=== PATIENT | male | born 1940 | race Two or more races ===

== ENCOUNTER 2016-04-16 13:23 | Emergency (ER) | payer MEDICARE, MEDICAID ==
--- NOTE | 2016-04-16 13:25 | ED Physician Chart ---
Chief Complaint/HPI - Patient Information Date Seen:: 04/16/16 Time Seen:: 13:25 Chief Complaint:: alcohol intoxication History of Present Illness:: 75-year-old male known alcoholic, brought in by ambulance with acute, moderate, constant, alcohol intoxication that started sometime this morning. Was picked up inside the building after the building on her called police who then called paramedics. Has associated abdominal discomfort. Allergies:: Allergies Allergy/AdvReac Type Severity Reaction Status Date / Time No Known Allergies Allergy Verified 02/01/16 10:57 Historian:: Patient, EMS Review:: Nurse's Note Reviewed Review of Systems - Review of Systems Other: Complete system review otherwise unremarkable except as noted in HPI. Past Medical History - Past Medical History Past Medical History: Other (alcohol abuse) Family History: None Social History: Non Smoker, No Alcohol, No Drug Use, Homeless Surgical History: None Psychiatricy History: None Medication: None Family Medical History - Family Member Mother History Unknown: Yes Ethnicity: Physical Exam - Physical Examination Other:: INITIAL VITAL SIGNS: Reviewed by me GENERAL: Alert and interactive. No acute distress HEAD: Head is normocephalic and atraumatic EYES: EOMI. . No scleral icterus. No conjunctival injection ENT: Moist mucous membranes. NECK: Supple. No masses. Full range of motion RESPIRATORY: No tachypnea. Clear breath sounds bilaterally. No wheezing, rales, or rhonchi CV: Regular rate and rhythm. No murmurs, rubs, or gallops ABDOMEN: Soft, non-distended, non-tender. No guarding. No rebound. No masses. EXTREMITIES: No deformity. No cyanosis. No edema. SKIN: Warm and dry. No obvious rashes. NEUROLOGIC: Alert and oriented. Face is symmetric. Speech is normal. Moves all extremities equally. Motor and sensory distally intact. Labs/Radiology/EKG Results - Lab Results Results: Lab Results 04/16/16 04/16/16 Range/Units 13:45 13:45 WBC 6.3 D (4.8-10.8) Th/cmm RBC 4.05 (3.80-5.80) Mil/cmm Hgb 12.1 L (12.6-17.4) gm/dL Hct 34.4 L (39.0-49.0) % MCV 85.0 (80-99) fl MCH 29.8 (27.0-31.0) pg MCHC Differential 35.1 (28.0-36.0) pg RDW 13.3 (11.5-20.0) % Plt Count 119 L D (150-400) Th/cmm MPV 8.9 fl Neutrophils % 66.7 (40.0-80.0) % Lymphocytes % 26.4 (20.0-50.0) % Monocytes % 6.0 (2.0-10.0) % Eosinophils % 0.4 (0.0-5.0) % Basophils % 0.5 (0.0-2.0) % Sodium 141 (136-145) mEq/L Potassium 2.9 L* (3.5-5.1) mEq/L Chloride 105 (98-107) mEq/L Carbon Dioxide 22.1 (21.0-31.0) mEq/L Anion Gap 16.8 H (7.0-16.0) BUN 12 (7-25) mg/dL Creatinine 0.7 (0.7-1.3) mg/dL Est GFR ( Amer) TNP Est GFR (Non-Af Amer) TNP BUN/Creatinine Ratio 17.1 Glucose 134 H (70-105) mg/dL Calcium 9.0 (8.6-10.3) mg/dL Total Bilirubin 0.6 (0.3-1.0) mg/dL AST 32 (13-39) U/L ALT 17 (7-52) U/L Alkaline Phosphatase 88 (34-104) U/L Total Protein 6.7 (6.0-8.3) gm/dL Albumin 3.9 L (4.2-5.5) gm/dL Globulin 2.8 gm/dL Albumin/Globulin Ratio 1.4 (1.0-1.8) Amylase 28 L (29-103) U/L Lipase 37 (11-82) U/L ED Septic Shock - . Is Septic Shock (SBP<90, OR Lactate>4 mmol\L) present?: No Reassessment (Disposition) - Reassessment Reassessment:: Patient had hypokalemia. Potassium was replaced with oral potassium. He also received antiemetic. Patient appears to have some alcoholic gastritis. Symptoms improved after receiving acetaminophen. Patient was noted to eat a meal. He was ambulatory to and from restroom and throughout the emergency department. Signs of any acute abnormality. Ultimately the patient was discharged from the ER. Recommended follow-up with PCP or free clinic within one to 2 days. Gave return to ER precautions. Patient understands and agrees the plan. Reassessment Condition:: Improved - Diagnosis Diagnosis:: Hypokalemia Alcohol intoxication Alcoholic gastritis - Aftercare/Follow up Instructions Aftercare/Follow-Up Instructions:: Counseled pt regarding lab results/diagnosis & need follow up, Refer to Discharge Instructions - Patient Disposition Discharge/Transfer:: Home Time:: 15:03 Condition at Disposition:: Improved ED Discharge Plan - Patient Disposition Admit/Discharge/Transfer: PT DISCHARGED HOME Condition at Disposition: Improved Instructions: Hypokalemia
[2016-04-16] MEDS ORDERED: Sodium Chloride 0.9% 500 ML IV ONE (13:36)
[2016-04-16 13:51] LABS: % BASOPHILS 0.5 % (0.0-2.0); % EOSINOPHILS 0.4 % (0.0-5.0); % LYMPHOCYTES 26.4 % (20.0-50.0); % NEUTROPHILS 66.7 % (40.0-80.0); HEMATOCRIT 34.4 % (39.0-49.0); HEMOGLOBIN 12.1 gm/dL (12.6-17.4); MEAN CORPUSCULAR HEMOGLOBIN 29.8 pg (27.0-31.0); MEAN CORPUSCULAR HGB CONC 35.1 pg (28.0-36.0); MEAN PLATELET VOLUME 8.9 fl; NEUTROPHILE ABSOLUTE 4.2 Th/cmm (1.8-8.0); RED BLOOD COUNT 4.05 Mil/cmm (3.80-5.80); RED CELL DISTRIBUTION WIDTH 13.3 % (11.5-20.0)
[2016-04-16 13:52] LABS: PLATELET COUNT 119 Th/cmm (150-400); WHITE BLOOD COUNT 6.3 Th/cmm (4.8-10.8)
[2016-04-16 14:13] LABS: ALB/GLOB RATIO 1.4 (1.0-1.8); ALKALINE PHOSPHATASE 88 U/L (34-104); AMYLASE SERUM 28 U/L (29-103); ANION GAP 16.8 (7.0-16.0); BILIRUBIN,TOTAL 0.6 mg/dL (0.3-1.0); BUN - UREA NITROGEN 12 mg/dL (7-25); BUN/CREATININE RATIO 17.1; CARBON DIOXIDE 22.1 mEq/L (21.0-31.0); CHLORIDE 105 mEq/L (98-107); CREATININE - SERUM 0.7 mg/dL (0.7-1.3); GLUCOSE 134 mg/dL (70-105); LIPASE 37 U/L (11-82); SGOT 32 U/L (13-39); SGPT/ALT 17 U/L (7-52); SODIUM SERUM 141 mEq/L (136-145)
[2016-04-16 14:20] LABS: POTASSIUM SERUM 2.9 mEq/L (3.5-5.1)
[2016-04-16] MEDS ORDERED: Potassium Chloride 20 mEq ER Tab PO ONE ×2 (14:22→14:37)
[2016-04-16 14:44] VITALS: BP 109/52
== END 2016-04-16 16:15 | disposition home or self-care (01) ==
LOC: EDBD → ER 13:23
DX: F10.129 Alcohol abuse with intoxication, unspecified (principal); E87.6 Hypokalemia; K29.20 Alcoholic gastritis without bleeding; Z59.0 Homelessness
CPT/HCPCS: 99284; 96372; 36415; 85025; 82150; 83690; 80053; Q0162; J1885; Z7502; Z7610

== ENCOUNTER 2016-05-10 15:29 | Emergency (ER) | payer MEDICARE, MEDICAID | END 2016-05-10 16:05 | disposition left against medical advice (07) | LOC: EDBD 15:29 → ER 15:29 | DX: F10.129 Alcohol abuse with intoxication, unspecified (principal) ==

== ENCOUNTER 2016-05-11 06:13 | Emergency (ER) | payer MEDICARE, MEDICAID ==
--- NOTE | 2016-05-11 06:33 | ED Physician Chart ---
Chief Complaint/HPI - Patient Information Date Seen:: 05/11/16 Time Seen:: 06:18 Chief Complaint:: EtOH intoxication History of Present Illness:: 75-year-old male, history of alcohol abuse, seen many times here in this emergency room and other local ERs, brought in with acute, constant, mild, generalized, nonradiating, headache started this morning. Was loitering in front of a local gas station and the gas pumper called the police to have him removed. Allergies:: Allergies Allergy/AdvReac Type Severity Reaction Status Date / Time No Known Allergies Allergy Verified 04/16/16 13:34 Historian:: Patient, EMS Review:: Nurse's Note Reviewed, EMS run form Reviewed Review of Systems - Review of Systems Other: Complete system review otherwise unremarkable except as noted in HPI. Past Medical History - Past Medical History Past Medical History: HTN, Other (alcohol abuse) Family History: None Social History: Non Smoker, Alcohol, No Drug Use, Homeless Surgical History: None Psychiatricy History: None Medication: None Family Medical History - Family Member Mother History Unknown: Yes Ethnicity: Physical Exam - Physical Examination Other:: INITIAL VITAL SIGNS: Reviewed by me GENERAL: Alert and interactive. No acute distress HEAD: Head is normocephalic and atraumatic EYES: EOMI. . No scleral icterus. No conjunctival injection ENT: Moist mucous membranes. NECK: Supple. No masses. Full range of motion RESPIRATORY: No tachypnea. Clear breath sounds bilaterally. No wheezing, rales, or rhonchi CV: Regular rate and rhythm. No murmurs, rubs, or gallops ABDOMEN: Soft, non-distended, non-tender. No guarding. No rebound. No masses. EXTREMITIES: No deformity. No cyanosis. No edema. SKIN: Warm and dry. No obvious rashes. NEUROLOGIC: Alert and oriented. Face is symmetric. Speech is normal. Moves all extremities equally. Motor and sensory distally intact. ED Septic Shock - . Is Septic Shock (SBP<90, OR Lactate>4 mmol\L) present?: No Reassessment (Disposition) - Reassessment Reassessment:: This patient was seen here multiple times for alcohol intoxication and today he received ibuprofen and Zofran. He did have a slight headache and the headache has improved. He is ambulating to and from the restroom and throughout the ER without any assistance. There is no signs of any unsteady gait. Patient wished to be discharged and he was discharged. Recommended follow-up in 1-2 days with outpatient clinic. Gave return to ER precautions. Patient understands and agrees with the plan. Reassessment Condition:: Improved - Diagnosis Diagnosis:: EtOH intoxication Cephalalgia - Aftercare/Follow up Instructions Aftercare/Follow-Up Instructions:: Counseled pt regarding lab results/diagnosis & need follow up, Refer to Discharge Instructions - Patient Disposition Discharge/Transfer:: Home Time:: 06:38 Condition at Disposition:: Improved ED Discharge Plan - Patient Disposition Admit/Discharge/Transfer: PT DISCHARGED HOME Condition at Disposition: Improved Instructions: Alcohol Intoxication
== END 2016-05-11 07:45 | disposition home or self-care (01) ==
LOC: EDBD → ER 06:13
DX: F10.129 Alcohol abuse with intoxication, unspecified (principal); R51 Headache; I10 Essential (primary) hypertension; Z59.0 Homelessness
CPT/HCPCS: 99283; Q0162; Z7502; Z7610

== ENCOUNTER 2016-08-26 16:58 | Emergency (ER) | payer MEDICARE, MEDICAID ==
--- NOTE | 2016-08-26 17:23 | ED Physician Chart ---
Chief Complaint/HPI - Patient Information Date Seen:: 08/26/16 Time Seen:: 17:10 Chief Complaint:: ALOC History of Present Illness:: THIS IS A CHRONIC ALCOHOLIC FOUND DOWN IN THE STREET WITH C/O CHEST PAIN AND A COUGH TODAY. THE EMS GAVE HIM ASA AND NITROGLYCERIN FOR HIS PAIN. HE ALSO C/O OF RIGHT SHOULDER PAIN. HE DRINKS LOTS OF ALCOHOL. Allergies:: Allergies Allergy/AdvReac Type Severity Reaction Status Date / Time No Known Allergies Allergy Verified 08/26/16 17:07 Vitals:: Vital Signs - 8 hr 08/26/16 16:58 Temp 98.3 F HR 120 RR 16 BP 130/69 O2 Sat % 97 Historian:: Patient, EMS Review:: Nurse's Note Reviewed Review of Systems - Review of Systems General/Constitutional: No fever, No chills, No weight loss, Weakness, No diaphoresis, No edema, No loss of appetite Skin: No skin lesions, No rash, No bruising Head: No headache, No light-headedness Eyes: No loss of vision, No pain, No diplopia ENT: No earache, No nasal drainage, No sore throat, No tinnitus Neck: No neck pain, No swelling, No thyromegaly, No stiffness, No mass noted Cardio Vascular: Chest pain, No palpitations, No PND, No orthopnea, No edema Pulmonary: No SOB, No cough, No sputum, No wheezing GI: No nausea, No vomiting, No diarrhea, No pain, No melena, No hematochezia, No constipation, No hematemesis G/U: No dysuria, No frequency, No hematuria Musculoskeletal: No bone or joint pain, No back pain, No muscle pain Endocrine: No polyuria, No polydipsia Psychiatric: No prior psych history, No depression, No anxiety, No suicidal ideation Hematopoietic: No bruising, No lymphadenopathy Allergic/Immuno: No urticaria, No angioedema Neurological: Syncope, No focal symptoms, No weakness, No paresthesia, No headache, No seizure, No dizziness, Confusion, No vertigo Past Medical History - Past Medical History Obtainable: Yes Past Medical History: HTN, CAD, Other (ALCOHOLISM) Family History: None Social History: Non Smoker, Alcohol, No Drug Use Surgical History: None Psychiatricy History: None Medication: Reviewed Family Medical History - Family Member Mother History Unknown: Yes Ethnicity: Physical Exam - Physical Examination General/Constitutional: Well-developed, well-nourished, Alert, No distress, GCS 15, Ambulatory Other Gen/Cons comments:: LOOK DRUNK FROM THE ETOH INTAKE Head: Atraumatic Eyes: Lids, conjuctiva normal, PERRL, EOMI Skin: Nl inspection, No rash, No skin lesions, No ecchymosis, Well hydrated, No lymphadenopathy ENMT: External ears, nose nl, Nasal exam nl, Lips, teeth, gums nl Neck: Nontender, Full ROM w/o pain, No JVD, No nuchal rigidity, No bruit, No mass, No stridor Respiratory: Nl effort/Exclusion, Clear to Auscultation, No Wheeze/Rhonchi/Rales Cardio Vascular: RRR, No murmur, gallop, rubs, NL S1 S2 GI: No tenderness/rebounding/guarding, No organomegaly, No hernia, Normal BS's, Nondistended, No mass/bruits, No McBurney tenderness : No CVA tenderness Extremities: No tenderness or effusion, Full ROM, normal strength in all extremities, No edema, Normal digits & nails Neuro/Psych: Alert/oriented, DTR's symmetric, Normal sensory exam, Normal motor strength, Judgement/insight normal, Mood normal, Normal gait, No focal deficits Misc: normal gait, Normal back, No paraspinal tenderness Labs/Radiology/EKG Results - Lab Results Results: Abnormal Lab Results 08/26/16 08/26/16 08/26/16 17:56 17:56 17:56 WBC 8.3 D RBC 4.95 Hgb 14.0 Hct 41.6 D MCV 83.9 MCH 28.2 MCHC Differential 33.6 RDW 14.5 Plt Count 128 L MPV 9.8 Neutrophils % 85.4 H Lymphocytes % 11.3 L Monocytes % 2.1 Eosinophils % 0.4 Basophils % 0.8 PT 9.9 INR 0.95 Sodium 140 Potassium 3.8 Chloride 106 Carbon Dioxide 18.4 L Anion Gap 19.4 H BUN 18 Creatinine 0.7 Est GFR ( Amer) TNP Est GFR (Non-Af Amer) TNP BUN/Creatinine Ratio 25.7 Glucose 92 Calcium 9.5 Total Bilirubin 0.8 AST 26 ALT 16 Alkaline Phosphatase 94 Troponin I Total Protein 7.6 Albumin 4.6 Globulin 3.0 Albumin/Globulin Ratio 1.5 TSH Ethyl Alcohol 08/26/16 08/26/16 08/26/16 17:56 17:56 17:56 WBC RBC Hgb Hct MCV MCH MCHC Differential RDW Plt Count MPV Neutrophils % Lymphocytes % Monocytes % Eosinophils % Basophils % PT INR Sodium Potassium Chloride Carbon Dioxide Anion Gap BUN Creatinine Est GFR ( Amer) Est GFR (Non-Af Amer) BUN/Creatinine Ratio Glucose Calcium Total Bilirubin AST ALT Alkaline Phosphatase Troponin I 0.03 Total Protein Albumin Globulin Albumin/Globulin Ratio TSH 0.23 L Ethyl Alcohol 230 H - Radiology Results Results: CHEST -XRAY = NAD - EKG Interpretations EKG Time:: 17:04 Rate & Rhythm: RATE 116, SINUS TACH [place]: RIGHT Intervals: NO PVC OR PAC Assessment - Assessment General Assessment: HOMELESS ALCOHOLIC THIS PATIENT 'S ALCOHOL LEVEL WAS NOT HIGH IT USUALLY IS, HOWEVER THE PATIENT HAD A PROBLEM WITH NAUSEA AND LATER VOMITING. SO THE PATIENT WAS NOT ABLE TO LEAVE PLANNED. THE PATIENT WAS THEN GIVEN ZOFRAN AND ATIVAN FOR HIS NAUSEA. BECAUSE HE COMPLAINED ABOUT A HEADACHE WITH VOMITING A CT SCAN WAS ORDERED. THE PATIENT WAS MONITORED AND THE LABS WERE REPEATED. A CT SCAN OF THE ABDOMEN WILL BE DONE IF HIS VOMITING PERSIST. ED Septic Shock - . Is Septic Shock (SBP<90, OR Lactate>4 mmol\L) present?: No - <6hrs of presentation: Vital Signs: Vital Signs - 8 hr 08/26/16 16:58 Temp 98.3 F HR 120 RR 16 BP 130/69 O2 Sat % 97 Reassessment (Disposition) - Reassessment Reassessment Condition:: Improved - Diagnosis Diagnosis:: ALCOHOL ABUSE - Aftercare/Follow up Instructions Aftercare/Follow-Up Instructions:: Counseled pt regarding lab results/diagnosis & need follow up, Refer to Discharge Instructions, Counseled pt & family regarding lab results/diagnosis & need follow up - Patient Disposition Discharge/Transfer:: Home Condition at Disposition:: Improved ED Discharge Plan - Patient Disposition Admit/Discharge/Transfer: PT DISCHARGED HOME Condition at Disposition: Improved Instructions: Alcohol Intoxication, [id number] Additional Instructions: STOP DRINKING ALCOHOL! FOLLOW UP WITH YOUR REGULAR DOCTOR.
[2016-08-26 18:06] LABS: % BASOPHILS 0.8 % (0.0-2.0); % EOSINOPHILS 0.4 % (0.0-5.0); % LYMPHOCYTES 11.3 % (20.0-50.0); % MONOCYTES 2.1 % (2.0-10.0); % NEUTROPHILS 85.4 % (40.0-80.0); MEAN CELL VOLUME 83.9 fl (80-99); MEAN CORPUSCULAR HEMOGLOBIN 28.2 pg (27.0-31.0); MEAN CORPUSCULAR HGB CONC 33.6 pg (28.0-36.0); MEAN PLATELET VOLUME 9.8 fl; NEUTROPHILE ABSOLUTE 7.1 Th/cmm (1.8-8.0); PLATELET COUNT 128 Th/cmm (150-400); RED BLOOD COUNT 4.95 Mil/cmm (3.80-5.80); RED CELL DISTRIBUTION WIDTH 14.5 % (11.5-20.0)
[2016-08-26 18:07] LABS: HEMATOCRIT 41.6 % (39.0-49.0); WHITE BLOOD COUNT 8.3 Th/cmm (4.8-10.8)
[2016-08-26 18:19] LABS: INR 0.95 (0.5-1.4); PROTHROMBIN TIME (TEST) 9.9 SECONDS (9.5-11.5)
[2016-08-26 18:24] LABS: ALB/GLOB RATIO 1.5 (1.0-1.8); ALKALINE PHOSPHATASE 94 U/L (34-104); ANION GAP 19.4 (7.0-16.0); BILIRUBIN,TOTAL 0.8 mg/dL (0.3-1.0); BUN - UREA NITROGEN 18 mg/dL (7-25); BUN/CREATININE RATIO 25.7; CALCIUM SERUM 9.5 mg/dL (8.6-10.3); CARBON DIOXIDE 18.4 mEq/L (21.0-31.0); CHLORIDE 106 mEq/L (98-107); CREATININE - SERUM 0.7 mg/dL (0.7-1.3); GLUCOSE 92 mg/dL (70-105); POTASSIUM SERUM 3.8 mEq/L (3.5-5.1); SGOT 26 U/L (13-39); SGPT/ALT 16 U/L (7-52); SODIUM SERUM 140 mEq/L (136-145)
[2016-08-26] MEDS ORDERED: Acetaminophen 500 MG TAB ONE (19:47)
[2016-08-26 23:36] LABS: POTASSIUM SERUM 4.1 mEq/L (3.5-5.1)
--- NOTE | 2016-08-27 10:05 | Diagnostic Imaging Report ---
CT scan of the brain without intravenous contrast HISTORY: Vomiting, headache Total DLP equals 548 CTDI equals 30.1 Axial sections were obtained from the base of the skull to the vertex. There is prominence/enlargement of the ventricular system size. Associated enlargement of cerebral sulci and subarachnoid cisterns. Findings are consistent with changes of generalized cerebral atrophy. No acute parenchymal abnormalities. No acute cerebral hemorrhage. Hypodensity is seen within the supratentorial white matter regions without mass effect. The findings may be associated with chronic small vessel ischemic disease. No extra-axial masses or abnormal fluid collections. IMPRESSION: 1. No acute abnormalities. No change from a prior study of February 17, 2016. 2. Cerebral atrophy 3. Supratentorial white matter changes that may reflect chronic small vessel ischemic disease 4. Mild mucosal thickening within the ethmoid and right frontal sinuses.
--- NOTE | 2016-08-27 10:15 | Diagnostic Imaging Report ---
Portable chest x-ray HISTORY: Cough The heart is enlarged. No focal pulmonary processes. No hilar or mediastinal abnormalities. Generative changes seen to the spine. IMPRESSION: 1. Cardiomegaly 2. No definite focal pulmonary processes
== END 2016-08-27 06:30 | disposition home or self-care (01) ==
LOC: ER 16:58
DX: F10.129 Alcohol abuse with intoxication, unspecified (principal); Y90.7 Blood alcohol level of 200-239 mg/100 ml; R07.9 Chest pain, unspecified; R40.4 Transient alteration of awareness; M25.511 Pain in right shoulder; I25.10 Atherosclerotic heart disease of native coronary artery without angina pectoris; I10 Essential (primary) hypertension; R11.2 Nausea with vomiting, unspecified; Z59.0 Homelessness
CPT/HCPCS: 36415-UA; 70450-TC; 71010-TC; 80053-TC; 80320-TC; 82150-TC; 83690-TC; 84132-TC; 84443-TC; 84484-TC; 85025-TC; 85610-TC; 86592-TC; 93005; J2060; Q0162; Z7610

== ENCOUNTER 2016-11-10 14:22 | Emergency (ER) | payer MEDICARE, MEDICAID ==
[2016-11-10] MEDS ORDERED: Multivitamin Inj 10 ML, Thiamine HCL 100 MG, Magnesium Sulfate 2 GM, Folic Acid 1 MG in... IV ONE (14:36)
[2016-11-10] MEDS ORDERED: Magnesium Sulfate 1 gm/2 mL 2mL Vial IV ONE (14:41)
--- NOTE | 2016-11-10 14:42 | ED Physician Chart ---
Chief Complaint/HPI - Patient Information Date Seen:: 11/10/16 Time Seen:: 14:25 Chief Complaint:: alcohol consumption History of Present Illness:: [place] [address] A bystander apparently called 911. Patient denies any particular problem at present. He states he been drinking alcohol today. When asked what kind of alcohol he drinks he states he drinks all kinds. Allergies:: Allergies Allergy/AdvReac Type Severity Reaction Status Date / Time No Known Allergies Allergy Verified 08/26/16 17:07 Historian:: Patient, EMS Review:: Nurse's Note Reviewed Review of Systems - Review of Systems General/Constitutional: No fever, No chills Skin: No skin lesions Head: No headache Eyes: No loss of vision ENT: No earache Neck: No neck pain Cardio Vascular: No chest pain Pulmonary: No SOB GI: No nausea, No vomiting G/U: No dysuria Musculoskeletal: No bone or joint pain, No back pain Endocrine: No polyuria, No polydipsia Psychiatric: No prior psych history, No depression Hematopoietic: No bruising Allergic/Immuno: No urticaria Neurological: No syncope Past Medical History - Past Medical History Past Medical History: No significant medical hx Family History: None Social History: Non Smoker, Alcohol, Homeless Surgical History: Cholecystectomy Psychiatricy History: None Medication: None Family Medical History - Family Member Mother History Unknown: Yes Ethnicity: Hx Family HIV: No Physical Exam - Physical Examination General/Constitutional: Well-developed, well-nourished, Alert, No distress Head: Atraumatic Eyes: Lids, conjuctiva normal, PERRL Skin: Nl inspection, No rash, No skin lesions, No ecchymosis Other ENMT comments:: Crust around entrance to left external auditory canal; 4 out of 4 poor dental hygiene Neck: No nuchal rigidity Respiratory: Nl effort/Exclusion, Clear to Auscultation Cardio Vascular: RRR GI: No tenderness/rebounding/guarding, No organomegaly, No hernia, Normal BS's, Nondistended : No CVA tenderness Extremities: Normal digits & nails Neuro/Psych: No focal deficits Labs/Radiology/EKG Results - Lab Results Results: Laboratory Results - last 24 hr 11/10/16 11/10/16 11/10/16 14:42 14:42 14:42 WBC 8.0 D RBC 3.59 L Hgb 10.4 L Hct 30.4 L MCV 84.6 MCH 29.1 MCHC Differential 34.3 RDW 18.7 Plt Count 99 L D MPV 9.2 Neutrophils % 74.2 Lymphocytes % 19.3 L Monocytes % 5.4 Eosinophils % 0.6 Basophils % 0.5 Sodium 136 Potassium 3.0 L Chloride 102 Carbon Dioxide 22.2 Anion Gap 14.8 BUN 11 Creatinine 0.7 Est GFR ( Amer) TNP Est GFR (Non-Af Amer) TNP BUN/Creatinine Ratio 15.7 Glucose 122 H Calcium 9.1 Magnesium 1.5 L Ethyl Alcohol 398 H - Radiology Results Results: CT head showed atrophy; no bleed Assessment - Assessment General Assessment: At 1715 patient stated he wanted to leave. He ambulated with a steady gait. ED Septic Shock - . Is Septic Shock (SBP<90, OR Lactate>4 mmol\L) present?: No Reassessment (Disposition) - Reassessment Reassessment Condition:: Improved - Diagnosis Diagnosis:: Acute alcohol intoxication; hypokalemia; hypomagnesemia; chronic alcohol abuse - Patient Disposition Discharge/Transfer:: Against Medical Advice Condition at Disposition:: Stable, Improved ED Discharge Plan - Patient Disposition Instructions: Alcohol Intoxication, [id number] Additional Instructions: TOLERATED.
[2016-11-10] MEDS ORDERED: Multivitamin Inj 10 mL Vial IV ONE (14:43)
[2016-11-10] MEDS ORDERED: Thiamine 100 mg/mL 2mL Vial ONE (14:51)
[2016-11-10 14:53] LABS: % BASOPHILS 0.5 % (0.0-2.0); % EOSINOPHILS 0.6 % (0.0-5.0); % LYMPHOCYTES 19.3 % (20.0-50.0); % MONOCYTES 5.4 % (2.0-10.0); % NEUTROPHILS 74.2 % (40.0-80.0); HEMATOCRIT 30.4 % (39.0-49.0); HEMOGLOBIN 10.4 gm/dL (12.6-17.4); MEAN CELL VOLUME 84.6 fl (80-99); MEAN CORPUSCULAR HEMOGLOBIN 29.1 pg (27.0-31.0); MEAN CORPUSCULAR HGB CONC 34.3 pg (28.0-36.0); MEAN PLATELET VOLUME 9.2 fl; NEUTROPHILE ABSOLUTE 6.1 Th/cmm (1.8-8.0); RED BLOOD COUNT 3.59 Mil/cmm (3.80-5.80); RED CELL DISTRIBUTION WIDTH 18.7 % (11.5-20.0)
[2016-11-10 15:01] LABS: PLATELET COUNT 99 Th/cmm (150-400)
[2016-11-10 15:04] LABS: BUN - UREA NITROGEN 11 mg/dL (7-25); BUN/CREATININE RATIO 15.7; CALCIUM SERUM 9.1 mg/dL (8.6-10.3); CARBON DIOXIDE 22.2 mEq/L (21.0-31.0); CHLORIDE 102 mEq/L (98-107); CREATININE - SERUM 0.7 mg/dL (0.7-1.3); GLUCOSE 122 mg/dL (70-105); MAGNESIUM 1.5 mg/dL (1.9-2.7); SODIUM SERUM 136 mEq/L (136-145)
[2016-11-10 15:07] LABS: ANION GAP 14.8 (7.0-16.0)
[2016-11-10] MEDS ORDERED: Potassium Chloride 20 mEq ER Tab PO ONE ×2 (15:23→16:10)
--- NOTE | 2016-11-11 09:18 | Diagnostic Imaging Report ---
Head CT without intravenous contrast Indication: Bleeding from the left ear Comparison: CT head on 08/27/2016 Technique: Axial images were obtained from the vertex to the skull base without IV contrast. Coronal reconstructions were made. Total DLP: 514, CTDI30.1 FINDINGS: Images of the brain obtained without contrast demonstrate no evidence of an acute hemorrhage. Atrophy is noted. Mild supratentorial white matter disease is noted. The ventricles and basal cisterns are patent. No mass effect or midline shift. Atherosclerotic vascular disease is noted. No evidence of a skull fracture or focal soft tissue swelling. Hyperpneumatized mastoid air cells are noted. The bilateral mastoid air cells are clear. The bilateral middle ears appears clear. The visualized paranasal sinuses demonstrate mild mucosal thickening. IMPRESSION: No evidence of acute intracranial hemorrhage. Atrophy. Mild supratentorial white matter disease which is nonspecific and may be due to chronic microvessel ischemia. Atherosclerotic vascular disease.
== END 2016-11-10 17:27 | disposition left against medical advice (07) ==
LOC: ER 14:22
DX: F10.129 Alcohol abuse with intoxication, unspecified (principal); S09.90XA Unspecified injury of head, initial encounter; E87.6 Hypokalemia; E83.42 Hypomagnesemia; Z59.0 Homelessness; Z90.49 Acquired absence of other specified parts of digestive tract
CPT/HCPCS: 99285; 96365; 96366; 70450; 36415; 85025; 80320; 83735; 80048; J3411; J3475; J7030; X6226; X6598

== ENCOUNTER 2017-02-09 14:41 | Emergency (ER) | payer MEDICARE, MEDICAID ==
--- NOTE | 2017-02-09 14:57 | ED Physician Chart ---
ED Chief Complaint/HPI - Patient Information Date Seen:: 02/09/17 Time Seen:: 14:45 Chief Complaint:: unsteady gait History of Present Illness:: Patient was noted to have an unsteady gait at a fast food restaurant and bystander called an ambulance. Allergies:: Allergies Allergy/AdvReac Type Severity Reaction Status Date / Time No Known Allergies Allergy Verified 11/10/16 14:48 Historian:: Patient, EMS Review:: Nurse's Note Reviewed ED Review of Systems - Review of Systems General/Constitutional: No fever, No chills Skin: No skin lesions Head: No headache Eyes: No loss of vision ENT: No earache Neck: No neck pain, No swelling Cardio Vascular: No chest pain, No palpitations Pulmonary: No SOB, No cough, No wheezing GI: No nausea, No vomiting, No diarrhea G/U: No dysuria Musculoskeletal: No bone or joint pain Endocrine: No polyuria Psychiatric: No prior psych history, No depression Hematopoietic: No bruising Allergic/Immuno: No urticaria Neurological: No syncope ED Past Medical History - Past Medical History Past Medical History: Other (chronic alcohol abuse) Family History: None Social History: Non Smoker, Alcohol Surgical History: Cholecystectomy Psychiatricy History: None Medication: None Family Medical History - Family Member Mother History Unknown: Yes Ethnicity: Living Status: Unknown Hx Family Cancer: No Hx Family Coronary Artery Disease: No Hx Family Congestive Heart Failure: No Hx Family Hypertension: Yes Hx Family Stroke: No Hx Family Diabetes: No Hx Family Seizures: No Hx Family Dementia: No Hx Family AIDS: No Hx Family HIV: No Hx Family COPD: No Hx Family Hepatitis: No Hx Family Psychiatric Problems: No Hx Family Tuberculosis: No ED Physical Exam - Physical Examination General/Constitutional: Well-developed, well-nourished, Alert Head: Atraumatic Other Head comments:: No swelling or tenderness of the scalp Eyes: Lids, conjuctiva normal, PERRL Skin: No rash Other ENMT comments:: Review carious teeth present Neck: No nuchal rigidity Respiratory: Nl effort/Exclusion, Clear to Auscultation Cardio Vascular: RRR, No murmur, gallop, rubs GI: No tenderness/rebounding/guarding, No organomegaly Extremities: No tenderness or effusion Neuro/Psych: No focal deficits Misc: No paraspinal tenderness ED Labs/Radiology/EKG Results - Lab Results Results: Laboratory Results - last 24 hr 02/09/17 15:00 Ethyl Alcohol 332 H ED Assessment - Assessment General Assessment: At 1725 patient wanted to be discharged. He was normally ambulatory and his speech was clear without any slurring. ED Septic Shock - . Is Septic Shock (SBP<90, OR Lactate>4 mmol\L) present?: No ED Reassessment (Disposition) - Reassessment Reassessment Condition:: Improved - Diagnosis Diagnosis:: Acute alcohol intoxication; chronic alcohol abuse - Aftercare/Follow up Instructions Aftercare/Follow-Up Instructions:: Refer to Discharge Instructions - Patient Disposition Discharge/Transfer:: Home Condition at Disposition:: Stable, Improved ED Discharge Plan - Patient Disposition Instructions: Alcohol Intoxication, [id number] Accepting Physician: Lawson Ledesma [Active] - 1-3 Days
== END 2017-02-09 17:30 | disposition home or self-care (01) ==
LOC: ER 14:41
DX: F10.129 Alcohol abuse with intoxication, unspecified (principal); Z90.49 Acquired absence of other specified parts of digestive tract
CPT/HCPCS: 36415-UA; 80320-TC; Z7502

== ENCOUNTER 2017-09-16 05:05 | Emergency (ER) | payer MEDICARE, MEDICAID ==
--- NOTE | 2017-09-16 06:03 | ED Physician Chart ---
ED Chief Complaint/HPI - Patient Information Date Seen:: 09/16/17 Time Seen:: 05:58 Chief Complaint:: inability to empty bladder and suprapubic pain History of Present Illness:: ht is a 76 yr old male who had prostate surgery recently and had wheeler placed there 3 days ago with c/o's of suprapubic pain excruciating pt very uncomfortable and has some dark urine and bag is empty pt appears to be having trouble urinating. Allergies:: Allergies Allergy/AdvReac Type Severity Reaction Status Date / Time No Known Allergies Allergy Verified 02/09/17 14:53 Vitals:: Vital Signs - 8 hr 09/16/17 05:10 Temp 97.2 F HR 88 RR 18 BP 161/90 O2 Sat % 97 Historian:: Patient ED Review of Systems - Review of Systems General/Constitutional: No fever, No chills, No weight loss, No weakness, No diaphoresis, No edema, No loss of appetite Skin: No skin lesions, No rash, No bruising Head: No headache, No light-headedness Eyes: No loss of vision, No pain, No diplopia ENT: No earache, No nasal drainage, No sore throat, No tinnitus Neck: No neck pain, No swelling, No thyromegaly, No stiffness, No mass noted Cardio Vascular: No chest pain, No palpitations, No PND, No orthopnea, No edema Pulmonary: No SOB, No cough, No sputum, No wheezing GI: No nausea, No vomiting, No diarrhea, No pain, No melena, No hematochezia, No constipation, No hematemesis G/U: Frequency, Hematuria, Other (trouble emptying his bladder) Musculoskeletal: No bone or joint pain, No back pain, No muscle pain Endocrine: No polyuria, No polydipsia Psychiatric: No prior psych history, No depression, No anxiety, No suicidal ideation Hematopoietic: No bruising, No lymphadenopathy Allergic/Immuno: No urticaria, No angioedema Neurological: No syncope, No focal symptoms, No weakness, No paresthesia, No headache, No seizure, No dizziness, No confusion, No vertigo ED Past Medical History - Past Medical History Past Medical History: Other (etoh) Social History: Alcohol Family Medical History - Family Member Mother History Unknown: Yes Ethnicity: Living Status: Unknown Hx Family Cancer: No Hx Family Coronary Artery Disease: No Hx Family Congestive Heart Failure: No Hx Family Hypertension: Yes Hx Family Stroke: No Hx Family Diabetes: No Hx Family Seizures: No Hx Family Dementia: No Hx Family AIDS: No Hx Family HIV: No Hx Family COPD: No Hx Family Hepatitis: No Hx Family Psychiatric Problems: No Hx Family Tuberculosis: No ED Physical Exam - Physical Examination General/Constitutional: Awake, Well-developed, well-nourished, Alert, GCS 15, Non-toxic appearing Other Gen/Cons comments:: pt having trouble walking poor balance and having leg cramps Head: Atraumatic Eyes: Lids, conjuctiva normal, PERRL, EOMI Skin: Nl inspection, No rash, No skin lesions, No ecchymosis, Well hydrated, No lymphadenopathy ENMT: External ears, nose nl, Nasal exam nl, Lips, teeth, gums nl Neck: Nontender, Full ROM w/o pain, No JVD, No nuchal rigidity, No bruit, No mass, No stridor Respiratory: Nl effort/Exclusion, Clear to Auscultation, No Wheeze/Rhonchi/Rales Cardio Vascular: RRR, No murmur, gallop, rubs, NL S1 S2 GI: No tenderness/rebounding/guarding, No organomegaly, No hernia, Normal BS's, Nondistended, No mass/bruits, No McBurney tenderness : No CVA tenderness Extremities: No tenderness or effusion, Full ROM, normal strength in all extremities, No edema, Normal digits & nails Neuro/Psych: Alert/oriented, Judgement/insight normal, Mood normal Misc: Normal back, No paraspinal tenderness ED Assessment - Assessment General Assessment: bph recent sugery in [place] with non draining wheeler needs probable wheeler replacement ED Septic Shock - . Is Septic Shock (SBP<90, OR Lactate>4 mmol\L) present?: No - <6hrs of presentation: Vital Signs: Vital Signs - 8 hr 09/16/17 05:10 Temp 97.2 F HR 88 RR 18 BP 161/90 O2 Sat % 97 ED Discharge Plan - Patient Disposition Admit/Discharge/Transfer: PT DISCHARGED HOME Condition at Disposition: Improved Additional Instructions: pt was able to void in bathroom on his own probably needs wheeler replacement
[2017-09-16 06:23] LABS: % BASOPHILS 1.4 % (0.0-2.0); % LYMPHOCYTES 16.4 % (20.0-50.0); % NEUTROPHILS 73.2 % (40.0-80.0); BASOPHILE ABSOLUTE 0.1 Th/cumm (0-0.2); EOSINOPHILE ABSOLUTE 0.1 Th/cmm (0.1-0.4); HEMATOCRIT 36.9 % (41.0-60); HEMOGLOBIN 12.3 gm/dL (12-16); MEAN CELL VOLUME 80.9 fl (80-99); MEAN CORPUSCULAR HGB CONC 33.3 pg (28.0-36.0); MEAN PLATELET VOLUME 9.5 fl; MONOCYTE ABSOLUTE 0.5 Th/cmm (0.3-1.0); NEUTROPHILE ABSOLUTE 4.4 Th/cmm (1.8-8.0); PLATELET COUNT 129 Th/cmm (150-400); RED BLOOD COUNT 4.56 Mil/cmm (3.80-5.80); RED CELL DISTRIBUTION WIDTH 20.5 % (11.5-20.0); WHITE BLOOD COUNT 6.1 Th/cmm (4.8-10.8)
[2017-09-16 06:44] LABS: PROTHROMBIN TIME (TEST) 10.4 SECONDS (9.5-11.5)
[2017-09-16 06:49] LABS: URINE MICROSCOPIC INDICATED? YES; URINE SOURCE FOLEY PORT
[2017-09-16 06:53] LABS: URINE BILIRUBIN NEGATIVE (NEGATIVE); URINE BLOOD LARGE (NEGATIVE); URINE GLUCOSE (UA) 100 mg/dL (NEGATIVE); URINE KETONE NEGATIVE (NEGATIVE); URINE LEUKOCYTE ESTERASE TRACE (NEGATIVE); URINE PROTEIN 30 mg/dL (NEGATIVE)
[2017-09-16 07:01] LABS: URINE CLARITY CLEAR (CLEAR); URINE COLOR DARK ORANGE; URINE NITRATE COLOR INTERFERENCE (NEGATIVE)
[2017-09-16 07:02] LABS: URINE WBC 0-2 /hpf (0-5)
[2017-09-16 07:03] LABS: URINE BACTERIA FEW /hpf (NONE SEEN); URINE EPITHELIAL CELLS RARE /lpf (FEW)
[2017-09-16 07:14] LABS: ALB/GLOB RATIO 1.4 (1.0-1.8); ALBUMIN 4.2 gm/dL (4.2-5.5); ALKALINE PHOSPHATASE 84 U/L (34-104); BILIRUBIN,TOTAL 0.4 mg/dL (0.3-1.0); BUN - UREA NITROGEN 15 mg/dL (7-25); CARBON DIOXIDE 15.7 mEq/L (21.0-31.0); CHLORIDE 112 mEq/L (98-107); CREATININE - SERUM 0.8 mg/dL (0.7-1.3); GLUCOSE 84 mg/dL (70-105); POTASSIUM SERUM 3.7 mEq/L (3.5-5.1); SGOT 18 U/L (13-39); SGPT/ALT 8 U/L (7-52); SODIUM SERUM 142 mEq/L (136-145); TOTAL PROTEIN,SERUM 7.3 gm/dL (6.0-8.3)
== END 2017-09-16 08:15 | disposition home or self-care (01) ==
LOC: ER 05:05 → EDBD 05:05 → ER 08:15
DX: Z46.6 Encounter for fitting and adjustment of urinary device (principal); R10.30 Lower abdominal pain, unspecified
CPT/HCPCS: 36415-UA; 80053-TC; 81001-TC; 85025-TC; 85610-TC; Z7502; Z7610

== ENCOUNTER 2017-09-26 20:59 | Emergency (ER) | payer MEDICARE, MEDICAID ==
[2017-09-26 21:55] LABS: % BASOPHILS 0.8 % (0.0-2.0); % EOSINOPHILS 0.5 % (0.0-5.0); % LYMPHOCYTES 17.3 % (20.0-50.0); % MONOCYTES 12.2 % (2.0-10.0); % NEUTROPHILS 69.2 % (40.0-80.0); HEMOGLOBIN 10.5 gm/dL (12-16); LYMPHOCYTE ABSOLUTE 0.7 Th/cmm (1.5-3.0); MEAN CELL VOLUME 81.5 fl (80-99); MEAN CORPUSCULAR HEMOGLOBIN 27.7 pg (27.0-31.0); MEAN CORPUSCULAR HGB CONC 33.9 pg (28.0-36.0); MEAN PLATELET VOLUME 9.1 fl; MONOCYTE ABSOLUTE 0.5 Th/cmm (0.3-1.0); NEUTROPHILE ABSOLUTE 2.6 Th/cmm (1.8-8.0); PLATELET COUNT 84 Th/cmm (150-400); RED CELL DISTRIBUTION WIDTH 19.1 % (11.5-20.0)
[2017-09-26 22:01] LABS: WHITE BLOOD COUNT 3.8 Th/cmm (4.8-10.8)
--- NOTE | 2017-09-26 22:06 | ED Physician Chart ---
ED Chief Complaint/HPI - Patient Information Date Seen:: 09/26/17 Time Seen:: 21:40 Chief Complaint:: alcohol intoxication History of Present Illness:: 76 yo male was brought by ambulance to ER due to alcohol intoxication and right shoulder pain with limited ROM after a fall 2 days ago. Allergies:: Allergies Allergy/AdvReac Type Severity Reaction Status Date / Time No Known Allergies Allergy Verified 02/09/17 14:53 Vitals:: Vital Signs - 8 hr 09/26/17 21:15 Temp 100.0 F HR 102 RR 20 BP 110/60 O2 Sat % 94 ED Review of Systems - Review of Systems General/Constitutional: No fever, No chills Skin: No bruising Head: No headache Eyes: No pain ENT: No sore throat Neck: No neck pain Cardio Vascular: No chest pain Pulmonary: No SOB GI: No nausea, No vomiting Musculoskeletal: Bone or joint pain Neurological: Weakness ED Past Medical History - Past Medical History Past Medical History: Other (BPH) Social History: Non Smoker, Alcohol, No Drug Use Psychiatricy History: Other (Alcohol intoxication) Family Medical History - Family Member Mother History Unknown: Yes Ethnicity: Living Status: Unknown Hx Family Cancer: No Hx Family Coronary Artery Disease: No Hx Family Congestive Heart Failure: No Hx Family Hypertension: Yes Hx Family Stroke: No Hx Family Diabetes: No Hx Family Seizures: No Hx Family Dementia: No Hx Family AIDS: No Hx Family HIV: No Hx Family COPD: No Hx Family Hepatitis: No Hx Family Psychiatric Problems: No Hx Family Tuberculosis: No ED Physical Exam - Physical Examination General/Constitutional: Awake Head: Atraumatic Eyes: PERRL Skin: No ecchymosis ENMT: Nasal exam nl Neck: No nuchal rigidity Respiratory: No Wheeze/Rhonchi/Rales Cardio Vascular: RRR, No murmur, gallop, rubs, NL S1 S2 GI: No tenderness/rebounding/guarding Other Extremities comments:: Right shoulder pain with limited ROM and high riding of right shoulder Neuro/Psych: Normal gait ED Labs/Radiology/EKG Results - Lab Results Results: Laboratory Tests 09/26/17 21:45 WBC 3.8 L RBC 3.80 Hgb 10.5 L Hct 31.0 L MCV 81.5 MCH 27.7 MCHC Differential 33.9 RDW 19.1 Plt Count 84 L MPV 9.1 Neutrophils % 69.2 Lymphocytes % 17.3 L Monocytes % 12.2 H Eosinophils % 0.5 Basophils % 0.8 Laboratory Last Values WBC 3.8 Th/cmm (4.8-10.8) L 09/26/17 21:45 RBC 3.80 Mil/cmm (3.80-5.80) 09/26/17 21:45 Hgb 10.5 gm/dL (12-16) L 09/26/17 21:45 Hct 31.0 % (41.0-60) L 09/26/17 21:45 MCV 81.5 fl (80-99) 09/26/17 21:45 MCH 27.7 pg (27.0-31.0) 09/26/17 21:45 MCHC Differential 33.9 pg (28.0-36.0) 09/26/17 21:45 RDW 19.1 % (11.5-20.0) 09/26/17 21:45 Plt Count 84 Th/cmm (150-400) L 09/26/17 21:45 MPV 9.1 fl 09/26/17 21:45 Neutrophils % 69.2 % (40.0-80.0) 09/26/17 21:45 Lymphocytes % 17.3 % (20.0-50.0) L 09/26/17 21:45 Monocytes % 12.2 % (2.0-10.0) H 09/26/17 21:45 Eosinophils % 0.5 % (0.0-5.0) 09/26/17 21:45 Basophils % 0.8 % (0.0-2.0) 09/26/17 21:45 PT 9.9 SECONDS (9.5-11.5) 09/26/17 21:45 INR 0.85 (0.5-1.4) 09/26/17 21:45 PTT (Actin FS) 28.6 SECONDS (26.0-38.0) 09/26/17 21:45 Sodium 136 mEq/L (136-145) 09/26/17 21:45 Potassium 2.8 mEq/L (3.5-5.1) L* 09/26/17 21:45 Chloride 101 mEq/L (98-107) 09/26/17 21:45 Carbon Dioxide 25.7 mEq/L (21.0-31.0) 09/26/17 21:45 Anion Gap 12.1 (7.0-16.0) 09/26/17 21:45 BUN 15 mg/dL (7-25) 09/26/17 21:45 Creatinine 0.5 mg/dL (0.7-1.3) L 09/26/17 21:45 Est GFR ( Amer) TNP 09/26/17 21:45 Est GFR (Non-Af Amer) TNP 09/26/17 21:45 BUN/Creatinine Ratio 30.0 09/26/17 21:45 Glucose 134 mg/dL (70-105) H 09/26/17 21:45 Whole Bld Lactic Acid 1.85 mmol/L (0.60-1.99) 09/26/17 21:45 Calcium 8.2 mg/dL (8.6-10.3) L 09/26/17 21:45 Ethyl Alcohol 282 mg/dL (0-10) H 09/26/17 21:45 - Radiology Results Results: CXR: hiatal hernia, no focal consolidation Right shoulder X ray: high riding humeral head due to chronic rotator cuff tear , degenerative changes, osteopenia ED Assessment - Assessment General Assessment: Alcohol intoxication Pancytopenia Hypokalemia Right shoulder pain Assessment/Comments:: CBC, CMP, ETOH level NS 1L IV bolus KCL 40 mEq po x 1 After treatment and sleep overnight in ER, patient became less toxic by alcohol D/c home ED Septic Shock - . Is Septic Shock (SBP<90, OR Lactate>4 mmol\L) present?: No - <6hrs of presentation: Vital Signs: Vital Signs - 8 hr 09/26/17 21:15 Temp 100.0 F HR 102 RR 20 BP 110/60 O2 Sat % 94 ED Reassessment (Disposition) - Reassessment Reassessment Condition:: Improved - Patient Disposition Discharge/Transfer:: Home ED Discharge Plan - Patient Disposition Admit/Discharge/Transfer: PT DISCHARGED HOME Instructions: Alcohol Intoxication, [id number] Additional Instructions: STOP DRINKING ALCOHOLIC BEVERAGES FOLLOW UP WITH YOUR PRIMARY MEDICAL DOCTOR KULWINDER
[2017-09-26 22:08] LABS: ANION GAP 12.1 (7.0-16.0); BUN - UREA NITROGEN 15 mg/dL (7-25); CALCIUM SERUM 8.2 mg/dL (8.6-10.3); CARBON DIOXIDE 25.7 mEq/L (21.0-31.0); CHLORIDE 101 mEq/L (98-107); CREATININE - SERUM 0.5 mg/dL (0.7-1.3); GLUCOSE 134 mg/dL (70-105); SODIUM SERUM 136 mEq/L (136-145)
[2017-09-26 22:19] LABS: POTASSIUM SERUM 2.8 mEq/L (3.5-5.1)
[2017-09-26 22:26] LABS: INR 0.85 (0.5-1.4); PROTHROMBIN TIME (TEST) 9.9 SECONDS (9.5-11.5)
[2017-09-26] MEDS ORDERED: Sodium Chloride 0.9% 1,000 ML IV ONE (22:28)
[2017-09-26] MEDS ORDERED: Potassium Chloride 20 mEq ER Tab PO ONE ×2 (22:29→22:48)
--- NOTE | 2017-09-27 08:48 | Diagnostic Imaging Report ---
CHEST X-RAY: AP view INDICATION: Shortness of breath COMPARISON: Chest x-ray 09/11/2016 and previous chest x-rays dating back to 08/22/2015. Study was also compared to previous CT examination on 02/17/2016 FINDINGS: Chronic lung changes are seen with unchanged increased right perihilar lung markings. Areas of bronchial wall thickening are noted. Retrocardiac density is noted most outside [employer] of a hiatal hernia. Old rib fractures are noted. No evidence of pneumothorax. No focal consolidation or effusions. There are probable small calcified granulomas in the left lung. Atherosclerosis is noted. Heart size normal. There is evidence of old trauma to the right proximal humerus. IMPRESSION: Increased right perihilar lung markings, likely chronic when compared to prior exams. No focal consolidation identified. Moderate size hiatal hernia. Probable small calcified granulomas of the left lung. Atherosclerotic vascular disease.
--- NOTE | 2017-09-27 08:50 | Diagnostic Imaging Report ---
Right shoulder 3 views Indication: pain Comparison: none Findings: Exam is limited due to body habitus. Severely high riding humeral head is noted. There appears to be calcification adjacent to the proximal humerus likely due to old trauma. There is also mild deformity of the humeral head/neck junction. Moderate AC joint degenerative changes are noted. Osteopenia is noted. No gross acute fracture identified. Impression: Limited exam due to body habitus. No gross acute fractures identified. There may have been old trauma to the proximal humeral head/neck junction. Noted, if there is continued concern for occult fracture CT follow-up may also be obtained. Markedly high riding humeral head which may be due to a chronic rotator cuff tear. Degenerative changes. Osteopenia. In the setting of trauma, if clinical symptoms persist and there is continued concern for an occult fracture, follow up exams in 5-7 days is suggested.
== END 2017-09-27 06:14 | disposition home or self-care (01) ==
LOC: ER 20:59
DX: F10.129 Alcohol abuse with intoxication, unspecified (principal); M25.511 Pain in right shoulder; R53.1 Weakness
CPT/HCPCS: 36415-UA; 71045-TC; 73030-TC-RT; 80048-TC; 80320-TC; 83605; 85025-TC; 85610-TC; J7030